=== PATIENT | female | born 1990 | race Caucasian/White ===

== ENCOUNTER 2017-09-26 02:15 | Emergency (ER) | payer SELFPAY ==
[2017-09-26 02:18] VITALS: BP 124/94; PULSE 96; RESP 16; TEMP 98.2; O2SAT 100
--- NOTE | 2017-09-26 02:31 | ED PDOC ---
HPI: Psych/Substance Abuse Time Seen by Provider: 09/26/17 02:18 Chief Complaint (Nursing): Alcohol Ingestion Chief Complaint (Provider): Alcohol abuse History Per: Patient History/Exam Limitations: no limitations Onset/Duration Of Symptoms: Hrs Additional Complaint(s): 27 yo female with no medical problems brought in by EMs for evaluation of alcohol abuse. Pt [place]. PT states she had 4 glasses of wine which is a normal amount for her when she does drinking which is once ever week or every other week. Pt states after her and her friend, who is at the bedside, went to get food and she began being sick. Denies PMHx. Discussed the evenings events with friend. No drug use, No head injury. Past Medical History Reviewed: Historical Data, Nursing Documentation, Vital Signs Vital Signs: Last Vital Signs Temp 98.2 F 09/26/17 02:16 Pulse 96 H 09/26/17 02:16 Resp 16 09/26/17 02:16 BP 124/94 H 09/26/17 02:16 Pulse Ox 100 09/26/17 02:16 - Medical History PMH: No Chronic Diseases - Surgical History Surgical History: No Surg Hx - Family History Family History: States: No Known Family Hx - Living Arrangements Living Arrangements: With Family - Social History Current smoker - smoking cessation education provided: No Alcohol: Occasional - Allergies Allergies/Adverse Reactions: Allergies Allergy/AdvReac Type Severity Reaction Status Date / Time No Known Allergies Allergy Verified 09/26/17 02:16 Review of Systems ROS Statement: Except As Marked, All Systems Reviewed And Found Negative Constitutional: Negative for: Fever, Chills Cardiovascular: Negative for: Chest Pain Respiratory: Negative for: Cough Gastrointestinal: Negative for: Nausea, Vomiting, Abdominal Pain Psych: Negative for: Depression Physical Exam - Reviewed Nursing Documentation Reviewed: Yes Vital Signs Reviewed: Yes - Physical Exam Appears: Positive for: Well, Non-toxic, No Acute Distress Head Exam: Positive for: ATRAUMATIC, NORMAL INSPECTION, NORMOCEPHALIC Skin: Positive for: Normal Color, Warm, DRY Eye Exam: Positive for: Normal appearance, EOMI, PERRL ENT: Positive for: Normal ENT Inspection Neck: Positive for: Normal, Painless ROM Cardiovascular/Chest: Positive for: Regular Rate, Rhythm Respiratory: Positive for: CNT, Normal Breath Sounds Back: Positive for: Normal Inspection Extremity: Positive for: Normal ROM Neurologic/Psych: Positive for: Alert, Oriented - ECG O2 Sat by Pulse Oximetry: 100 Medical Decision Making Medical Decision Making: PTs friends are coming to get her. Disposition - Clinical Impression Clinical Impression: Alcohol abuse - Patient ED Disposition Is Patient to be Admitted: No - Disposition Disposition: Routine/Home Disposition Time: 05:11 Condition: GOOD Instructions: Abuse of Alcohol (ED) Forms: [employer] (Romans[employer])
== END 2017-09-26 05:30 | disposition home or self-care (01) ==
LOC: H.ER 02:15
DX: F10.10 Alcohol abuse, uncomplicated (principal)